=== PATIENT | female | born 1965 | race Caucasian/White ===

== ENCOUNTER 2016-10-30 09:20 | Inpatient (IN) | payer MEDICAID ==
[~2016-10-30] VITALS: Ht 160 cm; Wt 107.1 kg
[~2016-10-30 09:20] MED LIST: CIPRO500 MG PO; COL100 PO; DULERA1 AR2 INH; ECO81 PO; FER300 PO; FLA500 PO; LAC PO; NORCO1 TA2 PO; PRI20 PO; VITC PO
--- NOTE | 2016-10-30 11:11 | NUR ---
PT BIB FAMILY C/C CELULITIS X [address] MORRIS AT BEDSIDE TO [facility]
--- NOTE | 2016-10-30 11:37 | NUR ---
PT TAKEN TO RADIOLOGY FOR CT
[2016-10-30 11:38] LABS: BASOPHIL % 0.3 % (0-2); PLATELET COUNT 272 x10^3mcL (130-400); RED CELL DISTRIBUTION WIDTH 13.9 % (11.5-14.5)
[2016-10-30 11:53] LABS: CALCIUM 8.8 mg/dL (8.5-10.1); CARBON DIOXIDE 28.3 mmol/L (21-32); CHLORIDE SERUM 103 mmol/L (98-107); CREATININE SERUM 0.6 mg/dL (0.6-1.0); GFR1 > 60 mL/min; GLUCOSE SERUM 110 mg/dL (74-106); POTASSIUM SERUM 4.1 mmol/L (3.5-5.1); SODIUM SERUM 139 mmol/L (136-145)
[2016-10-30 11:57] LABS: ALKALINE PHOSPHATASE 124 U/L (46-116); ALT/SGPT 18 U/L (14-59); AST/SGOT 16 U/L (15-37); BILIRUBIN TOTAL 0.4 mg/dL (0.20-1.00); TOTAL PROTEIN, SERUM 7.9 g/dL (6.4-8.2)
[2016-10-30 11:58] LABS: ALBUMIN 3.2 g/dL (3.4-5.0)
--- NOTE | 2016-10-30 12:16 | NUR ---
MEDS STARTED AND GIVEN PER ORDERS
--- NOTE | 2016-10-30 12:52 | NUR ---
[facility]SA COLLECTED OF NARES
--- NOTE | 2016-10-30 13:24 | NUR ---
PT STS FEELS BETTER
[2016-10-30 13:29] LABS: T3 TOTAL 1.51 ng/mL
[2016-10-30 13:39] LABS: MAGNESIUM 2.2 mg/dL (1.8-2.4); PHOSPHOROUS 3.3 mg/dL (2.5-4.9)
--- NOTE | 2016-10-30 13:52 | NUR ---
PT ADMIT TO TELE ROOM 205B GAVE REPORT CORAL
[2016-10-30 13:56] LABS: CHOLESTEROL/HDL RATIO 4.1
--- NOTE | 2016-10-30 14:35 | NUR ---
PT SLEEPING AT THIS TIME
[2016-10-30 14:40] LABS: FREE T4 1.06 ng/dL (0.76-1.46); FREE THYROXINE INDEX 2.9 ug/dL (1.4-4.5); T4(THYROXINE) 10.3 ug/dL (4.7-13.3)
--- NOTE | 2016-10-30 15:13 | NUR ---
PLEASE ENTER FULL NAMES OF BRIGADIER/RN Patient data collected by (BRIGADIER): NORA GARZA Assessment reviewed and completed by (RN): BALJINDER ROSENBAUM
[2016-10-30 15:58] VITALS: BP 157/85
--- NOTE | 2016-10-30 16:02 | NUR ---
RECEIVED PT FROM ED VIA [employer]. ORIENTED PT TO ROOM AND SURROUNDINGS. IV NOTED TO RAC PATENT AND INTACT. TELE 23 PLACED ON PT READING SR WITH ELEVATED T WAVE. INSTRUCTED PT ON THE USE OF CALL LIGHT FOR ASSISTANCE. ENDORSED PT TO PRIMARY NURSE CORAL
[2016-10-30 16:17] LABS: UA SPECIFIC GRAVITY >=1.030 (1.005-1.035); microscopic required? YES; urine erythrocyte 1+ (NEGATIVE)
[2016-10-30 16:29] LABS: AMPHETAMINE QUAL UR NONE DETECTED (NEG <=1000)
--- NOTE | 2016-10-30 19:30 | NUR ---
PT ALERT/ORIENTED X4. NO C/O PAIN. SEE SKIN ASSESSMENT FOR SKIN INTEGRITY. TELE # 23, SR WITH ELEVATED T WAVE. HR; 93. PT ASSESSED; SEE NSG FLOWSHEET. SAFETY REINFORCED SEE EDUCAT SHEET. WILL CONTINUE TO MONITOR.
[2016-10-30 21:08] VITALS: BP 120/66
--- NOTE | 2016-10-30 22:06 | NUR ---
NEW DRESSING APPLIED TO RT LOWER ABD. APPLIED OPTIFOAM NON ADHERENT FOAM DRESSING WITH AN ABD DRESSING OVER IT. PT APPEARED TO HAVE TOLERATED WELL. WILL CONTINUE TO MONITOR.
[2016-10-31] VITALS (7 sets, daily range): BP systolic 111–135; BP diastolic 63–95
--- NOTE | 2016-10-31 01:00 | NUR ---
PT SLEEPING. NO DISTRESS NOTED. WILL CONTINUE TO MONITOR.
--- NOTE | 2016-10-31 03:40 | NUR ---
PT SLEEPING. NO DISTRESS NOTED. WILL CONTINUE TO MONITOR.
--- NOTE | 2016-10-31 05:05 | NUR ---
PT SLEPT IN LONG INTERVALS THROUGHOUT THE NIGHT. NO DISTRESS NOTED. NO C/O PAIN. WILL CONTINUE TO MONITOR.
--- NOTE | 2016-10-31 07:30 | NUR ---
RECEIVED PAIENT AAOX4, ABLE TO COMMUNICATE AND FOLLOW COMMANDS, NO DISTRESS NOTED, TELE#[address] AND DENIES CHEST PAIN. PALPABLE PULSES TO BUE/BLE. ON ROOM AIR, DENIES SOB, AND RESPIRAITONS EVEN AND UNLABORED. DENIES N/V/D. VOIDS FREELY WITH BRP AND UP WITH MINIMAL ASSIST. WOUND NOTED TO RLQ COVERED IN ABD DRESSING CDI. DENIES PAIN. IV TO RAC CDI AND INFUSING NS AT 50ML/HR FREELY. BED TO LOWEST POSITION, SIDE RAILS UP X2, CALL LIGHT AND BELONGINGS WITHIN REACH, AND WILL CONTINUE TO MONITOR.
[2016-10-31 07:56] LABS: BASOPHIL % 0.3 % (0-2); PLATELET COUNT 269 x10^3mcL (130-400); RED CELL DISTRIBUTION WIDTH 14.1 % (11.5-14.5)
[2016-10-31 08:20] LABS: CALCIUM 8.5 mg/dL (8.5-10.1); CARBON DIOXIDE 21.4 mmol/L (21-32); CHLORIDE SERUM 106 mmol/L (98-107); CREATININE SERUM 0.6 mg/dL (0.6-1.0); GFR1 > 60 mL/min; GLUCOSE SERUM 117 mg/dL (74-106); POTASSIUM SERUM 4.4 mmol/L (3.5-5.1); SODIUM SERUM 142 mmol/L (136-145)
--- NOTE | 2016-10-31 09:10 | NUR ---
PATIENT LEFT TO SURGERY AAOX4, DENIES PAIN, RESPIRATIONS EVEN AND UNLABORED, AND WILL CONTINUE TO MONITOR WHEN PATINET RETURNS
--- NOTE | 2016-10-31 11:47 | NUR ---
RECEIVED PATIENT FROM OR AAOX4, ABLE TO COMMUNICATE AND FOLLOW COMMANDS, NO DISTRESS NOTED, RESPIRAITONS EVEN AND UNLABORED, DENIES PAIN, SURGICAL WOUND TO RLQ COVERED IN GUAZE CDI, CONNECTED PATIENT BACK TO NS INFUSING AT 50ML/HR FREELY, AND CONNECTED TO SCDS. CALL LIGHT AND BELONGINGS WITHIN REACH, AND WILL CONTINUE TO MONITOR.
--- NOTE | 2016-10-31 15:41 | NUR ---
MADE AWARE PATIENT CAME BACK WITH PRESUMTIVE MRSA TO ABD WOUND, NO NEW ORDERS AND WILL CONTINUE TO MONITOR.
--- NOTE | 2016-10-31 15:49 | NUR ---
PATIENT C/O SHARP PAIN TO RLQ ABD SURGICAL WOUND 12/22, MORPHINE SULFATE 2MG IV Q3H PRN GIVEN FOR PAIN, NO DISTRESS NOTED, RESPIRAITONS EVEN AND UNLABORED, CALL LIGHT AND BELONGINGS WITHIN REACH AND WILL CONTINUE TO MONITOR.
--- NOTE | 2016-10-31 18:19 | NUR ---
PATIENT SITTING UP IN BED AAOX4, NO DISTRESS NOTED, RESPIRAITONS EVEN AND UNLABORED, DENIES PAIN, SURGICAL WOUND TO RLQ CDI, IV TO RAC CDI, FAMILY AT BEDSIDE, CALL LIGHT AND BELONGINGS WITHIN REACH, AND WILL ENDORSE TO NIGHT NURSE.
--- NOTE | 2016-10-31 19:45 | NUR ---
PT RESTING IN BED. AOX4. VERBAL WITH CLEAR SPEECH. DENIES ANY SOB. LUNGS CLEAR BILATERALLY. DENIES ANY CHEST PAIN. BOWEL SOUNDS PRESENT. LAST BM 10/31/16. DRESSING TO RIGHT LOWER ABDOMEN CDI. DENIES ANY PAIN AT THIS TIME. NO FACIAL GRIMACING NOTED. IV TO RIGHT AC PATENT AND INTACT. NO S/S OF INFECTION NOTED. NO EDEMA NOTED. PULSES PALPABLE. RESTING COMFORTABLY WITH RELAXED FACIAL FEATURES WATCHING TV. CALL LIGHT WITHIN REACH. WILL CONTINUE TO MONITOR.
--- NOTE | 2016-10-31 22:09 | NUR ---
PT C/O 3/10 BURNING PAIN TO RIGHT LOWER ABDOMEN. DRESSING DRY AND INTACT. REDNESS REMAINS SURROUNDING SITE. NO INCREASED REDNESS NOTED. PRN NORCO 7.5 MG PO GIVEN. CALL LIGHT WITHIN REACH. WILL CONTINUE TO MONITOR.
--- NOTE | 2016-10-31 23:02 | NUR ---
PT C/O NOT BEING ABLE TO SLEEP. DR. SIMPSON UPDATED AND AWARE. AWAITING NEW ORDERS.
--- NOTE | 2016-11-01 01:45 | NUR ---
PT RESTING IN BED WITH EYES CLOSED. REMAINS ON CONTACT PRECAUTIONS FOR MRSA TO ABDOMINAL WOUND. BREATHING EQUAL AND UNLABORED. NO S/S OF DISTRESS OR DISCOMFORT NOTED. IV PATENT AND INFUSING WELL. NO ADVERSE REACTIONS NOTED FROM IV CLEOCIN. RESTING COMFORTABLY WITH RELAXED FACIAL FEATURES. CALL LIGHT WITHIN REACH. WILL CONTINUE TO MONITOR.
[2016-11-01 05:29] VITALS: BP 106/54
[2016-11-01 06:23] LABS: CALCIUM 8.5 mg/dL (8.5-10.1); CARBON DIOXIDE 24.9 mmol/L (21-32); CHLORIDE SERUM 107 mmol/L (98-107); CREATININE SERUM 0.4 mg/dL (0.6-1.0); GFR1 > 60 mL/min; GLUCOSE SERUM 115 mg/dL (74-106); POTASSIUM SERUM 4.2 mmol/L (3.5-5.1); SODIUM SERUM 142 mmol/L (136-145)
--- NOTE | 2016-11-01 06:30 | NUR ---
PT RESTING IN BED WITH EYES CLOSED. PT SLEPT WELL THROUGH THE NIGHT. NO S/S OF DISTRESS OR DISCOMFORT NOTED AT THIS TIME. BREATHING EQUAL AND UNLABORED. IV INFUSING WELL. DENIES ANY PAIN OR DISCOMFORT AT THIS TIME. CALL LIGHT WITHIN REACH. WILL CONTINUE TO MONITOR.
--- NOTE | 2016-11-01 07:45 | NUR ---
RECEIVED PAIENT AAOX4, ABLE TO COMMUNICATE AND FOLLOW COMMANDS, NO DISTRESS NOTED, TELE#[address] AND DENIES CHEST PAIN. PALPABLE PULSES TO BUE/BLE. ON ROOM AIR, DENIES SOB, AND RESPIRAITONS EVEN AND UNLABORED. DENIES N/V/D. VOIDS FREELY WITH BRP AND UP WITH MINIMAL ASSIST. WOUND TO RLQ COVERED GUZE DRESSSING CDI. DENIES PAIN. IV TO RAC CDI AND INFUSING NS AT 50ML/HR FREELY. BED TO LOWEST POSITION, SIDE RAILS UP X2, CALL LIGHT AND BELONGINGS WITHIN REACH, AND WILL CONTINUE TO MONITOR.
--- NOTE | 2016-11-01 08:10 | NUR ---
PATIENT C/O SHARP PAIN TO RLQ ABD SURGICAL WOUND 11/22, NORCO 7.5/325 TAB PO Q4H PRN GIVEN FOR PAIN, NO DISTRESS NOTED, RESPIRAITONS EVEN AND UNLABORED, CALL LIGHT AND BELONGINGS WITHIN REACH AND WILL CONTINUE TO MONITOR.
[2016-11-01 08:53] LABS: PLATELET COUNT 265 x10^3mcL (130-400); RED CELL DISTRIBUTION WIDTH 14.4 % (11.5-14.5)
[2016-11-01 08:54] LABS: BASOPHIL % 0 % (0-2)
[2016-11-01 09:31] VITALS: BP 102/55
[2016-11-01 13:39] VITALS: BP 96/56
--- NOTE | 2016-11-01 14:13 | NUR ---
MADE AWARE OF ABD WALL TISSUE IS POSITIVE FOR PRELIMINARY MRSA, PATIENT ON CONTACT PRECAUTION, WILL CONTINUE TO MONITOR.
--- NOTE | 2016-11-01 14:43 | NUR ---
PATIENT LAYING IN BED WITH EYES CLOSED EASILY AROUSABLE, NO DISTRESS NOTED, RESPIRATIONS EVEN AND UNLABORED, FAMILY AT BEDSIDE, CALL LIGHT AND BELONGINGS WITHIN REACH, AND WILL CONTINUE TO MONITOR.
--- NOTE | 2016-11-01 14:49 | NUR ---
MADE AWARE OF ABD WALL TISSUE IS POSITIVE FOR PRELIMINARY MRSA, PATIENT ON CONTACT PRECAUTION, WILL CONTINUE TO MONITOR.
--- NOTE | 2016-11-01 15:25 | NUR ---
DRESSING CHANGED TO RLQ APPLIED XEROFOAM TO WOUND THEN COVERED IT WITH 4X4 PER DOCTORS ORDERS, PATIENT TOELRATED WELL BUT STARTED HAVING SHARP PAIN 5/10 TO WOUND AND WILL MEDICATE WITH PRN PAIN MEDICATION, DAUGHTER AT BEDSIDE, CALL LIGHT AND BELONGINGS WITHIN REACHM, AND WILL CONTINUE TO MONITOR.
--- NOTE | 2016-11-01 15:27 | NUR ---
PATIENT C/O SHARP PAIN 5/10 TO RLQ WOUND, NORCO 10/325 TAB PO Q4H PRN GIVEN FOR PAIN, NO DISTRESS NOTED, RESPIRATIONS EVEN AND UNLABORED, DAUGHTER AT BEDSIDE, AND WILL CONTINUE TO MONITOR.
[2016-11-01 16:52] VITALS: BP 106/61
--- NOTE | 2016-11-01 18:35 | NUR ---
PATIENT SITTING UP IN BED AAOX4, NO DISTRESS NOTED, RESPIRAITONS EVEN AND UNLABORED, DENIES PAIN, SURGICAL WOUND TO RLQ CDI, IV TO RAC CDI, CALL LIGHT AND BELONGINGS WITHIN REACH, AND WILL ENDORSE TO NIGHT NURSE.
[2016-11-01 19:25] VITALS: BP 118/74
--- NOTE | 2016-11-01 19:25 | NUR ---
PT RESTING IN BED. AOX4. DAUGHTER AT BEDSIDE. VERBAL WITH CLEAR SPEECH. NO S/S OF DISTRESS OR DISCOMFORT NOTED. LUNGS CLEAR BILATERALLY. DENIES ANY CHEST PAIN. ON TELE 23, NSR. ABD ROUND AND SOFT. DRESSING TO RT LOWER ABDOMEN CDI. REDNESS AND SWELLING PERSISTS. PT STATES PAIN IS 3-4/10 AND TOLERABLE AT THIS TIME. NO FACIAL GRIMACING NOTED. IV TO RIGHT AC PATENT AND INTACT. IV NS INFUSING WELL. NO S/S OF INFECTION NOTED. RESTING WITH RELAXED FACIAL FEATURES. CALL LIGHT WITHIN REACH. WILL CONTINUE TO MONITOR.
[2016-11-01 21:16] VITALS: BP 126/54
--- NOTE | 2016-11-02 00:33 | NUR ---
PT RESTING IN BED WITH EYES CLOSED. REMAINS ON CONTACT PRECAUTIONS FOR MRSA TO RIGHT LOWER ABDOMINAL WOUND. BREATHING EQUAL AND UNLABORED. NO S/S OF RESPIRATORY DISTRESS NOTED. IV PATENT AND INFUSING WELL. NO ADVERSE REACTIONS NOTED FROM IV CLEOCIN. RESTING COMFORTABLY WITH RELAXED FACIAL FEATURES. CALL LIGHT WITHIN REACH. WILL CONTINUE TO MONITOR.
--- NOTE | 2016-11-02 03:41 | NUR ---
PT RESTING IN BED WITH EYES CLOSED. NO S/S OF DISTRESS OR DISCOMFORT NOTED. BREATHING EQUAL AND UNLABORED. IV PATENT AND INFUSING WELL. RESTING WITH RELAXED FACIAL FEATURES. CALL LIGHT WITHIN REACH. WILL CONTINUE TO MONITOR.
[2016-11-02 06:08] VITALS: BP 101/61
--- NOTE | 2016-11-02 06:10 | NUR ---
PT SLEPT WELL THROUGHOUT THE NIGHT. EASILY AROUSED WHEN NAME CALLED. VERBAL WITH CLEAR SPEECH. RECEIVED ROUTINE MEDICATION AND SWALLOWED WITHOUT DIFFICULTY. IV NS AND IV CLEOCIN INFUSING WELL. DENIES ANY PAIN AT THIS TIME. NO S/S OF DISTRESS OR DISCOMFORT NOTED. RESTING COMFORTABLY WITH RELAXED FACIAL FEATURES. CALL LIGHT WITHIN REACH. WILL CONTINUE TO MONITOR.
[2016-11-02 06:11] LABS: BASOPHIL % 0.3 % (0-2); PLATELET COUNT 243 x10^3mcL (130-400)
[2016-11-02 06:33] LABS: CALCIUM 8.1 mg/dL (8.5-10.1); CARBON DIOXIDE 25.7 mmol/L (21-32); CHLORIDE SERUM 106 mmol/L (98-107); CREATININE SERUM 0.6 mg/dL (0.6-1.0); GFR1 > 60 mL/min; GLUCOSE SERUM 85 mg/dL (74-106); POTASSIUM SERUM 3.8 mmol/L (3.5-5.1); SODIUM SERUM 141 mmol/L (136-145)
--- NOTE | 2016-11-02 07:56 | NUR ---
RECEIVED PAIENT AAOX4, ABLE TO COMMUNICATE AND FOLLOW COMMANDS, NO DISTRESS NOTED, TELE#[address] AND DENIES CHEST PAIN. PALPABLE PULSES TO BUE/BLE. ON ROOM AIR, DENIES SOB, AND RESPIRAITONS EVEN AND UNLABORED. DENIES N/V/D. VOIDS FREELY WITH BRP AND UP WITH MINIMAL ASSIST. WOUND TO RLQ COVERED WITH GUZE DRESSSING CDI. DENIES PAIN. IV TO RAC CDI AND INFUSING NS AT 50ML/HR FREELY. BED TO LOWEST POSITION, SIDE RAILS UP X2, CALL LIGHT AND BELONGINGS WITHIN REACH, AND WILL CONTINUE TO MONITOR.
--- NOTE | 2016-11-02 08:42 | NUR ---
ROUNDS MADE BY , RESIDENTS, AND MEDICAL STAFF AT BEDSIDE, PATIENT WILL BE DISCHARGE TO TODAY DUE TO PATIENT RESPONDING TO ANTIBIOTICS AND WILL GO GOME WITH [facility], AND WILL HAVE TO FOLLOW UP WITH PCP, ALL QUESTIONS AND CONCERNS ADDRESSED, AND WILL CONTINUE TO MONITOR.
[2016-11-02 09:29] VITALS: BP 101/61
[2016-11-02 10:32] VITALS: BP 103/53
--- NOTE | 2016-11-02 12:10 | NUR ---
AT BEDSIDE EXPLAINING WOUND CARE INSTRUCTIONS, ASSESSING WOUND, INSTRUCTED TO APPLY XEROFORM DRESSING OVER WOUND AND COVER IT WITH 4X4 AND USE MEDICAL TAPE TO SECURE EDGES OF 4X4 DRESSING, WOUND PICTURE DONE, AND WOUND DRESSING CHANGE DONE DIRECTED BY . WOUND CARE SUPPLIES GIVEN 5- 4X4 CONTAINERS, 3 PACKETS OF XEROFORM, AND SURGICAL TAPE, ALL QUESTIONS AND CONCERNS ADDRESSED, SAID THERE WILL ALSO BE A NURSE COMING TO HOME TO CHECK ON WOUND. CALL LIGHT AND BELONGINGS WITHIN REACH, AND WILL CONTINUE TO MONITOR.
[2016-11-02] MEDS ORDERED: CLINDAMYCIN300 M1 PO (12:22)
[2016-11-02] MEDS ORDERED: BACTRIM DS1 TAB PO (12:24)
[2016-11-02] MEDS ORDERED: LAC PO (12:24)
--- NOTE | 2016-11-02 12:30 | NUR ---
PATIENT C/O ACHING PAIN TO BACK, NORCO 10/325 TAB PO Q4H PRN GIVE FOR PAIN, NO DISTRESS NOTED, CALL LIGHT AND BELONGINGS WITHIN REACH, AND WILL CONTINUE TO MONITOR.
[2016-11-02 13:26] VITALS: BP 101/51
--- NOTE | 2016-11-02 14:00 | NUR ---
DISCHARGE INSTRUCTIONS GIVEN TO PATIENT, REINFORCED WOUND CARE INSTRUCTION AND VERBALIZED UNDERSTANDING, ALL QUESTIONS AND CONCERNS ADDRESSED, CALL LIGHT WITHIN REACH, PATIENT AWAITING RIDE TO GO HOME, AND WILL CONTINUE TO MONITOR.
--- NOTE | 2016-11-02 14:55 | NUR ---
PATIENT DISCHARGE TO HOME VIA WHEELCHAIR AAOX4, NO DISTRESS NOTED, RESPIRATIONS EVEN AND UNLABORED, DENIES PAIN, PATIENT TOOK ALL PERSONAL BELONGINGS, DISCHARGE INSTRUCTIONS AND WOUND CARE SUPPLIES, IV D/C AND CANNULA INTACT, TELE REMOVED AND RETURNED TO TELE STATION.
== END 2016-11-02 14:58 | disposition home or self-care (01) | DRG 364 ==
LOC: ED 09:20 → DU 12:45
PROVIDERS: Emergency Medicine; Family Medicine; Surgery; ADMIT Family Medicine
PROC: 0J980ZZ Drainage of Abdomen Subcutaneous Tissue and Fascia, Open Approach (ICD-10-PCS; principal; 2016-10-31 08:30)
DX: L03.311 Cellulitis of abdominal wall (principal); E44.0 Moderate protein-calorie malnutrition; E66.01 Morbid (severe) obesity due to excess calories; K21.9 Gastro-esophageal reflux disease without esophagitis; J45.909 Unspecified asthma, uncomplicated; R73.03 Prediabetes; G56.03 Carpal tunnel syndrome, bilateral upper limbs; R00.0 Tachycardia, unspecified; M17.0 Bilateral primary osteoarthritis of knee; M51.26 Other intervertebral disc displacement, lumbar region; D33.2 Benign neoplasm of brain, unspecified; Z68.41 Body mass index [BMI] 40.0-44.9, adult
CPT/HCPCS: 80307; 83880; 84439; 94150; J0295; J1720; J2250; J2270; J3010; J3490; J7030; Q0092; Q0177

== ENCOUNTER 2017-03-18 11:41 | Emergency (ER) | payer MEDICAID ==
[~2017-03-18 11:41] MED LIST changes: +BACTRIM DS1 TAB PO; +CLINDAMYCIN300 M1 PO
[2017-03-18 13:51] VITALS: BP 142/89
== END 2017-03-18 13:51 | disposition home or self-care (01) ==
LOC: ED 11:41
DX: M10.9 Gout, unspecified (principal); J45.909 Unspecified asthma, uncomplicated; Z88.8 Allergy status to other drugs, medicaments and biological substances; Z79.51 Long term (current) use of inhaled steroids; Z90.49 Acquired absence of other specified parts of digestive tract

== ENCOUNTER 2018-03-09 22:27 | Emergency (ER) | payer MEDICAID ==
[2018-03-09 22:35] VITALS: BP 147/87; Ht 160 cm
== END 2018-03-10 01:21 | disposition left against medical advice (07) ==
LOC: ED 22:27
DX: R07.89 Other chest pain (principal); R06.00 Dyspnea, unspecified; Z53.21 Procedure and treatment not carried out due to patient leaving prior to being seen by health care provider